=== PATIENT | male | born 1995 | race Two or more races ===

== ENCOUNTER 2024-09-09 23:09 | Emergency (ER) | payer MEDICAID ==
[~2024-09-09] VITALS: Ht 167.6 cm; Wt 77.1 kg
[2024-09-09] MEDS: methylPREDNISolone SOD SUCC 125 MG/2ML VIAL IV ONE (23:30)
[2024-09-09] MEDS: IV NS 0.9% 1,000 ML BAG IV ONE (23:30)
[2024-09-09] MEDS: FAMOTIDINE/PF INJ 20 MG/2 ML VIAL IV ONE (23:30)
[2024-09-09] MEDS ORDERED: methylPREDNISolone SOD SUCC 125 MG/2ML VIAL ONE (23:35)
[2024-09-09] MEDS ORDERED: FAMOTIDINE/PF INJ 20 MG/2 ML VIAL IV ONE (23:36)
[2024-09-10] MEDS ORDERED: EPIN0.3P3 IM (02:05)
[2024-09-10 02:16] VITALS: BP 132/79; TEMP 97.6; O2SAT 98
== END 2024-09-10 02:35 | disposition home or self-care (01) ==
LOC: ER 23:28
DX: T78.04XA Anaphylactic reaction due to fruits and vegetables, initial encounter (principal); Y84.8 Other medical procedures as the cause of abnormal reaction of the patient, or of later complication, without mention of misadventure at the time of the procedure; Y82.8 Other medical devices associated with adverse incidents
CPT/HCPCS: 99284; 96374; 96361; 96375; J1308; J2919